=== PATIENT | female | born 1960 | race African-American/Black ===

== ENCOUNTER 2022-05-21 10:22 | Emergency (ER) | payer BC, SELFPAY ==
[2022-05-21 11:24] LABS: Absolute Lymphocytes (CBC) 1.7 K/uL (0.7-4.9); Hematocrit 35.9 % (36.0-45.0); Lymphocytes % 30.5 % (15.3-44.8); MCV 85.8 fL (80-100); MPV 8.5 fL (7.6-11.3); RBC Red Blood Cell Count 4.19 M/uL (3.86-4.86)
[2022-05-21 11:48] LABS: Albumin 4.4 g/dL (3.4-5.0); Bilirubin Direct 0.2 mg/dL (0-0.2); Bilirubin Total 0.8 mg/dL (0.2-1.0); Protein, Total 9.2 g/dL (6.4-8.2); Troponin High Sensitivity 4.7 pg/mL (<58.9)
[2022-05-21 11:51] LABS: Potassium 2.9 mmol/L (3.5-5.1)
--- NOTE | 2022-05-21 12:14 | RAD REPORT ---
EXAM DESCRIPTION: RAD - Chest Single View - 05/21/2022 11:53 am CLINICAL HISTORY: MALAISE COMPARISON: No comparisons FINDINGS: Lines: None. Lungs: No evidence of edema or pneumonia. Pleural: No significant pleural effusions or pneumothorax. Cardiac: The heart size is within normal limits. Mediastinum: Within normal limits. Bones: No acute fractures. Other: None IMPRESSION: No acute cardiopulmonary disease.
[2022-05-21] MEDS ORDERED: KETOROLAC 30 MG/ML INJ ONE (12:21)
[2022-05-21] MEDS ORDERED: cloNIDine HCL 0.1 MG TAB ONE (12:21)
[2022-05-21] MEDS ORDERED: POTASSIUM 25 MEQ EFFERV TAB ONE (12:21)
--- NOTE | 2022-05-21 13:23 | RAD REPORT ---
EXAM DESCRIPTION: CT - Abdomen Pelvis W Contrast - 05/21/2022 12:46 pm CLINICAL HISTORY: LUQ pain COMPARISON: No comparisons TECHNIQUE: Biphasic, helical CT imaging of the abdomen and pelvis was performed following 100 ml non -ionic IV contrast. Oral contrast was given. All CT scans are performed using dose optimization technique as appropriate and may include automated exposure control or mA/KV adjustment according to patient size. FINDINGS: No suspicious findings in the lung bases. The liver, spleen, and pancreas show no suspicious findings. Gallbladder and biliary tree are also wi thout suspicious finding. Symmetric renal function is seen with no hydronephrosis or suspicious renal mass. No pyelonephritis o r acute parenchymal process. No bladder abnormalities. No adrenal abnormalities. Uterus and ovaries s how no suspicious findings. No dilated bowel loops or bowel wall thickening. Moderate stool volume present throughout the colon. No appendicitis. Left-sided diverticulosis is minimal with no diverticulitis findings. No free air, f ree fluid or inflammatory stranding. No hernia, mass or bulky lymphadenopathy. Disc and bone degenerative changes are present. No acute finding. IMPRESSION: Contrast enhanced CT abdomen and pelvis showing no acute or emergent finding.
--- NOTE | 2022-05-21 13:39 | ER ---
Nurse's Notes [facility] Name: Deneen Burger Age: 62 yrs Sex: Female : 1960 Arrival Date: 05/21/2022 Time: 10:24 Bed Treatment Private MD: Diagnosis: Hypertensive Urgency;Thoracic Strain Presentation: 05/21 11:17 Chief complaint: Patient states: was going to the [facility] for left side pain iw and they told her her BP was high and they sent her to the ER. Coronavirus screen: At this time, the client does not indicate any symptoms associated with coronavirus-19. Ebola Screen: Patient negative for fever greater than or equal to 101.5 degrees Fahrenheit, and additional compatible Ebola Virus Disease symptoms Patient denies exposure to infectious person. Patient denies travel to an Ebola-affected area in the 21 days before illness onset. No symptoms or risks identified at this time. Onset of symptoms was May 21, 2022. 11:17 Method Of Arrival: Ambulatory iw 11:17 Acuity: EAN 3 iw 14:01 Initial Sepsis Screen: Does the patient meet any 2 criteria? No. Patient's initial iw sepsis screen is negative. Does the patient have a suspected source of infection? No. Patient's initial sepsis screen is negative. Risk Assessment: Do you want to hurt yourself or someone else?. Historical: - Allergies: 12:00 No Known Allergies; iw - Immunization history:: Adult Immunizations up to date. - Social history:: Smoking status: unknown. Screenin:19 Abuse screen: Denies threats or abuse. Denies injuries from another. Nutritional eh3 screening: No deficits noted. Tuberculosis screening: No symptoms or risk factors identified. Fall Risk None identified. Assessment: 13:19 General: Appears in no apparent distress. uncomfortable, Behavior is calm, cooperative, eh3 appropriate for age. Pain: Complains of pain in left upper quadrant Pain does not radiate. Pain currently is 8 out of 10 on a pain scale. Quality of pain is described as aching, sharp. Neuro: Level of Consciousness is awake, alert, obeys commands, Oriented to person, place, time, situation. Cardiovascular: Capillary refill < 3 seconds Patient's skin is warm and dry. Respiratory: Airway is patent Respiratory effort is even, unlabored. GI: Abdomen is round non-distended, Reports upper abdominal pain. : No signs and/or symptoms were reported regarding the genitourinary system. Vital Signs: 11:59 BP 190 / 92; Pulse 78; Resp 16; Temp 98.0; Pulse Ox 97% on R/A; iw 13:18 BP 202 / 112; Pulse 76; Resp 18; Pulse Ox 96% on R/A; Pain 8/10; eh3 13:54 BP 153 / 81; Pulse 67; Resp 16; Pulse Ox 98% on R/A; iw ED Course: 10:24 Patient arrived in ED. rg4 10:29 Agnes Hernandez FNP is [facility]. jh7 10:29 Isidro Marte DO is Attending Physician. 7 11:15 Initial lab(s) drawn, by me, sent to lab. Inserted saline lock: 20 gauge in left em1 antecubital area, using aseptic technique. Blood collected. 11:16 Svetlana Arevalo, RN is Primary Nurse. iw 11:17 Triage completed. iw 11:23 EKG done, by ED staff, reviewed by Agnes NAGY. em1 11:55 XRAY Chest (1 view) In Process Unspecified. EDMS 12:47 CT Abd/Pelvis - IV Contrast Only In Process Unspecified. EDMS 13:19 No provider procedures requiring assistance completed. eh3 13:19 Patient has correct armband on for positive identification. Bed in low position. Call eh3 light in reach. Side rails up X 1. Client placed on continuous cardiac and pulse oximetry monitoring. NIBP monitoring applied. Door closed. Noise minimized. Lights dimmed. 14:01 IV discontinued, intact, bleeding controlled, No redness/swelling at site. Pressure iw dressing applied. Administered Medications: 12:19 Drug: Potassium Effervescent Tablet 50 mEq Route: PO; eh3 13:18 Follow up: Response: No adverse reaction eh3 12:19 Drug: cloNIDine 0.1 mg Route: PO; eh3 13:18 Follow up: Response: Blood pressure is unchanged eh3 12:19 Drug: Ketorolac 15 mg Route: IVP; Site: left antecubital; eh3 13:17 Follow up: Response: Pain is unchanged, physician notified eh3 Medication: 13:19 VIS not applicable for this client. eh3 Outcome: 13:39 Discharge ordered by MD. drake 14:01 Discharged to home ambulatory. iw 14:01 Condition: good 14:01 Discharge instructions given to patient, Instructed on discharge instructions, follow up and referral plans. Demonstrated understanding of instructions, follow-up care, medications, Prescriptions given X 2. 14:01 Patient left the ED. iw Signatures: Dispatcher [employer] EDSvetlana Corona RN RN iw Martinez, Eric emMarivel Ken 4 Griselda Mars RN RN 3 Agnes Hernandez, YAKOV NAGY 7
--- NOTE | 2022-05-21 13:39 | EDPHYS ---
Physician Documentation [facility] Name: Deneen Burger Age: 62 yrs Sex: Female : 1960 Arrival Date: 05/21/2022 Time: 10:24 Bed Treatment Private MD: ED Physician Isidro Marte HPI: 05/21 12:05 This 62 yrs old Black Female presents to ER via Ambulatory with complaints of High [facility] Blood Pressure. 12:05 The patient has elevated blood pressure and discovered this at a physician's office, [facility] and sent to the emergency department for evaluation. Onset: The symptoms/episode began/occurred gradually. Severity of symptoms: At its worst the blood pressure was 205 mm Hg. Patient reports that she was at her doctor's office today to evaluate left side/back pain. She was informed that her blood pressure was 205/95 and that she would need to go to the ER for eval. Patient reports that she used to be on blood pressure medicine a year ago but stopped taking it. Denies headache, dizziness, syncope, or visual changes.. Historical: - Allergies: 12:00 No Known Allergies; iw - Immunization history:: Adult Immunizations up to date. - Social history:: Smoking status: unknown. ROS: 12:05 Constitutional: Negative for fever, chills, and weight loss, Eyes: Negative for injury, jh7 pain, redness, and discharge, Neck: Negative for injury, pain, and swelling, Cardiovascular: Negative for chest pain, palpitations, and edema, Respiratory: Negative for shortness of breath, cough, wheezing, and pleuritic chest pain, Abdomen/GI: Negative for abdominal pain, nausea, vomiting, diarrhea, and constipation, MS/Extremity: Negative for injury and deformity, Skin: Negative for injury, rash, and discoloration, Neuro: Negative for headache, weakness, numbness, tingling, and seizure. 12:05 Back: Positive for radiated pain, of the mid back area and left upper quadrant. 12:05 All other systems are negative. Exam: 11:25 Back: pain, that is moderate, of the left upper quadrant and mid back area, CVA 7 tenderness, is absent. 11:25 Constitutional: This is a well developed, well nourished patient who is awake, alert, jh7 and in no acute distress. Head/Face: Normocephalic, atraumatic. Eyes: Pupils equal round and reactive to light, extra-ocular motions intact. Lids and lashes normal. Conjunctiva and sclera are non-icteric and not injected. Cornea within normal limits. Periorbital areas with no swelling, redness, or edema. Neck: Trachea midline, no thyromegaly or masses palpated, and no cervical lymphadenopathy. Supple, full range of motion without nuchal rigidity, or vertebral point tenderness. No Meningismus. Cardiovascular: Regular rate and rhythm with a normal S1 and S2. No gallops, murmurs, or rubs. Normal PMI, no JVD. No pulse deficits. Respiratory: Lungs have equal breath sounds bilaterally, clear to auscultation and percussion. No rales, rhonchi or wheezes noted. No increased work of breathing, no retractions or nasal flaring. Abdomen/GI: Soft, non-tender, with normal bowel sounds. No distension or tympany. No guarding or rebound. No evidence of tenderness throughout. Skin: Warm, dry with normal turgor. Normal color with no rashes, no lesions, and no evidence of cellulitis. MS/ Extremity: Pulses equal, no cyanosis. Neurovascular intact. Full, normal range of motion. Neuro: Awake and alert, GCS 15, oriented to person, place, time, and situation. Cranial nerves II-XII grossly intact. Motor strength 5/5 in all extremities. Sensory grossly intact. Cerebellar exam normal. Normal gait. Vital Signs: 11:59 BP 190 / 92; Pulse 78; Resp 16; Temp 98.0; Pulse Ox 97% on R/A; iw 13:18 BP 202 / 112; Pulse 76; Resp 18; Pulse Ox 96% on R/A; Pain 8/10; eh3 13:54 BP 153 / 81; Pulse 67; Resp 16; Pulse Ox 98% on R/A; iw MDM: 10:37 Patient medically screened. [facility] 13:35 Differential diagnosis: hypertensive crisis, Nonspecific abdominal pain, 7 nephrolithiasis. Data reviewed: vital signs, nurses notes, lab test result(s), radiologic studies, CT scan. Data interpreted: Pulse oximetry: is 98 %. Interpretation: normal. Counseling: I had a detailed discussion with the patient and/or guardian regarding: the historical points, exam findings, and any diagnostic results supporting the discharge/admit diagnosis, to return to the emergency department if symptoms worsen or persist or if there are any questions or concerns that arise at home. 05/21 10:36 Order name: Basic Metabolic Panel; Complete Time: 11:59 [facility] 05/21 10:36 Order name: CBC with Diff; Complete Time: 11:37 [facility] 05/21 10:36 Order name: LFT's; Complete Time: 11:59 [facility] 05/21 10:36 Order name: Troponin HS; Complete Time: 11:59 [facility] 05/21 10:36 Order name: Lipase; Complete Time: 11:59 [facility] 05/21 10:36 Order name: XRAY Chest (1 view); Complete Time: 12:26 [facility] 05/21 10:36 Order name: EKG; Complete Time: 10:37 [facility] 05/21 10:36 Order name: Cardiac monitoring; Complete Time: 11:24 [facility] 05/21 10:36 Order name: EKG - Nurse/Tech; Complete Time: 11:23 [facility] 05/21 12:06 Order name: CT Abd/Pelvis - IV Contrast Only; Complete Time: 13:32 [facility] 05/21 10:36 Order name: IV Saline Lock; Complete Time: 11:15 [facility] 05/21 10:36 Order name: Labs collected and sent; Complete Time: 11:15 [facility] 05/21 10:36 Order name: O2 Per Protocol; Complete Time: 11:24 [facility] 05/21 10:36 Order name: O2 Sat Monitoring; Complete Time: 11:24 [facility] EC:22 Rate is 77 beats/min. Rhythm is regular. QRS Plato is Normal. IL interval is normal at [facility] 162 msec. QRS interval is normal at 102 msec. QT interval is normal at 396 msec. No Q waves. T waves are Inverted in lead V5. Clinical impression: NSR w/ Non-specific ST/T Changes. Administered Medications: 12:19 Drug: Potassium Effervescent Tablet 50 mEq Route: PO; 3 13:18 Follow up: Response: No adverse reaction 3 12:19 Drug: cloNIDine 0.1 mg Route: PO; 3 13:18 Follow up: Response: Blood pressure is unchanged [facility] 12:19 Drug: Ketorolac 15 mg Route: IVP; Site: left antecubital; eh3 13:17 Follow up: Response: Pain is unchanged, physician notified eh3 Disposition: 16:40 Co-signature as Attending Physician, Isidro Marte DO I agree with the assessment and pa3 plan of care. Disposition Summary: 05/21/22 13:39 Discharge Ordered Location: Home [facility] Problem: chronic jh7 Symptoms: have improved jh7 Condition: Stable jh7 Diagnosis - Hypertensive Urgency jh7 - Thoracic Strain 7 Followup: [facility] - With: Private Physician - When: 2 - 3 days - Reason: Recheck today's complaints Discharge Instructions: - Discharge Summary Sheet jh7 - Hypertension, Adult jh7 - Thoracic Strain 7 Forms: - Work release form iw - Medication Reconciliation Form 7 - Thank You Letter [facility] Prescriptions: - Naprosyn 500 mg Oral Tablet - take 1 tablet by ORAL route 2 times per day take with food; 30 tablet; Refills: jh7 0, Product Selection Permitted - Zanaflex 4 mg Oral Tablet - take 1 tablet by ORAL route every 8 hours As needed; 20 tablet; Refills: 0, jh7 Product Selection Permitted Signatures: Dispatcher [employer] Svetlana Nayak, RN Isidro Lowery DO DO ms3 Griselda Mars RN RN [facility] Agnes Hernandez, ALGOLOGIST ALGOLOGIST [facility]
[2022-05-21 14:47] VITALS: TEMP 98
[2022-05-21 15:00] VITALS: BP 153/81; O2SAT 98
--- NOTE | 2022-05-22 13:57 | EKG ---
Test Date: 2022-05-21 Test Time: 11:23:29 Production Line Operator: DARRYN MEASUREMENT RESULTS: Intervals: Rate: 77 ME: 162 QRSD: 102 QT: 396 QTc: 448 [place]: P: 51 ME: 162 QRS: 31 T: 6 INTERPRETIVE STATEMENTS: Normal sinus rhythm Nonspecific T wave abnormality Abnormal ECG No previous ECG available for comparison Electronically Signed On 05-22-22 13:55:43 CDT by Olaf Rodgers
== END 2022-05-21 14:01 | disposition home or self-care (01) ==
LOC: ER 10:22
DX: I16.0 Hypertensive urgency (principal); S29.012A Strain of muscle and tendon of back wall of thorax, initial encounter
CPT/HCPCS: 36415; 71045; 74177; 80048; 80076; 83690; 84484; 85025; 93005; 96374; 99284; Q9967